=== PATIENT | female | born 1985 | race Caucasian/White ===

== ENCOUNTER 2018-11-27 09:59 | Emergency (ER) | payer OTHER ==
[2018-11-27 10:52] LABS: #Basophils 0.1 thou/uL (0.0-0.2); #Eosinphils 0.1 thou/uL (0.0-0.7); #Lymphocytes 1.3 thou/uL (1.20-3.40); #Monocytes 0.5 thou/uL (0.11-0.59); #Neutrophils 4.3 thou/uL (1.40-6.50); %Basophils 0.9 % (0.0-1.0); %Eosinophils 1.7 % (0.0-10.0); %Lymphocytes 20.8 % (21.0-51.0); %Monocytes 8.3 % (0.0-10.0); %Neutrophils 68.3 % (42.0-75.0); Hemoglobin 14.4 g/dL (12.0-16.0); Mean Corpuscular HGB CONC 33.4 g/dL (32.0-36.0); Mean Corpuscular Hemoglobin 32.1 pg (27.0-31.0); Mean Corpuscular Volume 96.1 fL (78.0-98.0); Mean Platelet Volume 7.1 fL (7.4-10.4); Platelet Count 281 thou/uL (130-400); RBC Distribution Width 11.5 % (11.5-14.5); Red Blood Cell (RBC) Count 4.47 mill/uL (4.20-5.40); White Blood Cell (WBC) Count 6.4 thou/uL (4.8-10.8)
[2018-11-27 11:14] LABS: ALT (SGPT) 14 U/L (8-55); AST (SGOT) 17 U/L (5-34); Albumin 4.6 g/dL (3.5-5.0); Alkaline Phosphatase 62 U/L (40-150); Anion Gap 11 mmol/L (10-20); BUN (Urea Nitrogen) 18 mg/dL (7.0-18.7); Bilirubin, Total 1.4 mg/dL (0.2-1.2); Calc. Creatinine Clearance 0 mL/min (70-130); Calcium 9.8 mg/dL (7.8-10.44); Carbon Dioxide 25 mmol/L (22-29); Chloride 107 mmol/L (98-107); Estimated GFR-MDRD 68; Globulin 2.5 g/dL (2.4-3.5); Glucose 101 mg/dL (70-105); Potassium 4.3 mmol/L (3.5-5.1); Protein, Total 7.1 g/dL (6.0-8.3); Sodium 139 mmol/L (136-145)
--- NOTE | 2018-11-27 12:41 | RAD ---
TWO VIEWS OF CHEST: DATE: 11/27/2018. COMPARISON: 12/14/2015. HISTORY: Abnormal EKG, chest pain. FINDINGS: Heart and mediastinal contours unremarkable. Lungs appear clear. IMPRESSION: No acute findings. POS: [facility]
== END 2018-11-27 11:47 | disposition home or self-care (01) ==
LOC: ERS 09:59
DX: R07.89 Other chest pain (principal)
CPT/HCPCS: 36415; 71046; 80053; 84484; 85025; 85379; 93005

== ENCOUNTER 2025-09-13 12:11 | Outpatient (CLI) | payer BC | END 2025-09-13 12:12 | disposition home or self-care (01) | LOC: SCSRAD 12:11 | PROVIDERS: ATTEND Student in an Organized Health Care Education/Training Program | DX: M54.2 Cervicalgia (principal); M43.9 Deforming dorsopathy, unspecified; R20.2 Paresthesia of skin | CPT/HCPCS: 72081 ==